=== PATIENT | female | born 1975 | race African-American/Black ===

== ENCOUNTER 2024-07-24 14:06 | Emergency (ER) | payer OTHER ==
[2024-07-24 14:09] VITALS: TEMP 97.2
[2024-07-24 14:39] LABS: BASO # 0.1 10^3/uL (0.0-0.2); BASO % 0.8 % (0.0-1.0); EOS # 0.1 10^3/uL (0.0-0.5); EOS % 2.2 % (0.0-3.0); HEMATOCRIT 43.9 % (36.0-47.0); LYMPH # 3.7 10^3/uL (1.5-5.0); LYMPH % 61.8 % (24.0-44.0); MEAN CORPUSCULAR HEMOGLOBIN 26.8 pg (27.0-33.0); MEAN CORPUSCULAR HGB CONC 31.9 g/dl (32.0-36.5); MEAN CORPUSCULAR VOLUME 84.1 fl (80.0-96.0); MONO # 0.2 10^3/uL (0.0-0.8); MONO % 3.3 % (2.0-8.0); NEUTROPHILS # 1.9 10^3/uL (1.5-8.5); NEUTROPHILS % 31.7 % (36.0-66.0); PLATELET COUNT, AUTOMATED 263 10^3/uL (150-450); RED BLOOD COUNT 5.22 10^6/uL (4.00-5.40)
[2024-07-24 15:04] LABS: LIPASE 27 U/L (12-53)
[2024-07-24 15:06] LABS: ALBUMIN 4.1 G/DL (3.2-5.2); ALKALINE PHOSPHATASE 63 U/L (35-104); ALT/SGPT 14 U/L (7.0-40); AST/SGOT 10 U/L (<34); BILIRUBIN,DIRECT 0.1 MG/DL (<0.4); BILIRUBIN,TOTAL 0.5 MG/DL (0.3-1.2); BLOOD UREA NITROGEN 11 MG/DL (9-23); CALCIUM LEVEL 9.7 MG/DL (8.5-10.1); CARBON DIOXIDE LEVEL 28 MMOL/L (20-31); CHLORIDE LEVEL 106 MMOL/L (98-107); CK-MB VALUE MASS 1.4 NG/ML (<3.6); CPK CREATINE PHOSPHOKINASE 169 U/L (34-145); CREATININE FOR GFR 0.63 MG/DL (0.55-1.30); GLOMERULAR FILTRATION RATE > 60.0 (>51); GLUCOSE, FASTING 88 MG/DL (60-100); MB/CK RELATIVE INDEX 0.82 (< OR =4); POTASSIUM SERUM 3.9 MMOL/L (3.5-5.1); SODIUM LEVEL 139 MMOL/L (136-145); TOTAL PROTEIN 7.7 G/DL (5.7-8.2)
[2024-07-24 15:08] LABS: THYROID STIMULATING HORMONE 1.803 uIU/ML (0.55-4.78)
[2024-07-24 15:15] VITALS: BP 145/97
[2024-07-24 15:21] VITALS: O2SAT 99
[2024-07-24] MEDS ORDERED: ISOVUE-370 76% 100ML VIAL As Ordered ONE (16:06)
[2024-07-24 16:07] LABS: CK-MB VALUE MASS 1.3 NG/ML (<3.6)
[2024-07-24 16:10] LABS: CPK CREATINE PHOSPHOKINASE 153 U/L (34-145); MB/CK RELATIVE INDEX 0.84 (< OR =4)
== END 2024-07-24 18:50 | disposition home or self-care (01) ==
LOC: M ED 14:06
DX: R07.9 Chest pain, unspecified (principal); R91.1 Solitary pulmonary nodule; I44.4 Left anterior fascicular block; I25.2 Old myocardial infarction; I10 Essential (primary) hypertension; Z87.891 Personal history of nicotine dependence
CPT/HCPCS: 36415; 71045; 71275; 80048; 80076; 82550; 82553; 83690; 84443; 84484; 85025; 93005; 93041; 94760; 99284; Q9967